=== PATIENT | female | born 1950 | race American Indian/Alaskan Native ===

== ENCOUNTER 2017-09-16 10:23 | Emergency (ER) | payer MEDICARE ==
[2017-09-16] MEDS ORDERED: SUBLIMAZE IV ONE (11:32)
[2017-09-16] MEDS ORDERED: BENADRYL IV ONE ×2 (11:32→13:15)
--- NOTE | 2017-09-16 11:39 | Emergency Department Report ---
HPI - General Chief Complaint: Pain General Time Seen by Provider: 09/16/17 11:24 - HPI HPI: The patient is a 66-year-old female with a history of fibromyalgia, chronic pain , who presents for evaluation of headache. The patient reports a constant headache since awakening this morning, approximately 2-3 hours prior to arrival , 5/10 in severity, throbbing in quality. She states that her headache is consistent with previous headaches. She also complains of generalized myalgias yesterday and this morning, although currently resolved. The patient denies fever, head injury, neck pain, neck stiffness, vision or hearing changes, smell or taste changes, paresthesias, facial drooping, slurred speech, seizure-like activity, urine or bowel incontinence or retention, or other focal neurological deficit. ED Past Medical Hx - Past Medical History Hx Hypertension: Yes Hx Heart Attack/AMI: No Hx Congestive Heart Failure: No Hx Diabetes: No Hx Seizures: No Hx Psychiatric Treatment: Yes (DEPRESSION) Hx Asthma: No Hx COPD: No Hx Dementia: No Additional medical history: HEART PROBLEMS/ FIBROMYALAGIA/ CHOLELITHIASIS - Surgical History Additional Surgical History: FOOT SURGERY - Social History Smoking Status: Never Smoker Substance Use Type: None - Medications Home Medications: Home Medications Medication Instructions Recorded Confirmed Last Taken Type Dexlansoprazole [Dexilant] 60 mg PO DAILY 10/30/14 03/22/16 03/22/16 History Escitalopram [Lexapro] 10 mg PO DAILY 10/30/14 03/22/16 03/22/16 History amLODIPine [Norvasc] 10 mg PO DAILY 10/30/14 03/22/16 03/22/16 History Meloxicam 7.5 mg PO DAILY 03/22/16 03/22/16 03/22/16 History Aspirin EC [Aspirin Enteric Coated 81 mg PO QDAY #30 tablet. 03/26/16 Unknown Rx TAB] HYDROcodone/APAP 5-325 [[place] 1 each PO Q6H PRN #30 tablet 03/26/16 Unknown Rx 5-325 mg TAB] Simvastatin [Zocor TAB] 20 mg PO QHS #30 tablet 03/26/16 Unknown Rx traMADol [Ultram 50 MG tab] 50 mg PO Q6HR PRN #10 tablet 09/16/17 Unknown Rx ED Review of Systems ROS: Stated complaint: PAIN ALL OVER Other details as noted in HPI Constitutional: denies: fever ENT: denies: throat or neck pain Respiratory: denies: cough, shortness of breath Cardiovascular: denies: chest pain Endocrine: denies unexplained weight loss or gain Gastrointestinal: denies: abdominal pain, nausea Genitourinary: denies: dysuria Musculoskeletal: denies: leg swelling Skin: denies: rash Neurological: reports: headache Hematological/Lymphatic: denies: easy bleeding or easy bruising Psych: denies sadness or hopelessness Physical Exam - Physical Exam Vital Signs: Vital Signs 09/16/17 10:32 Temperature 98.7 F Pulse Rate 104 H Respiratory 20 Rate Blood Pressure 206/132 O2 Sat by Pulse 96 Oximetry Physical Exam: General: well-nourished, well-developed, no acute distress Head: Normocephalic, atraumatic Eyes: normal sclera ENT: Mucous membranes are pale and dry Neck: No neck stiffness, no cervical adenopathy Respiratory: Breath sounds equal bilaterally, no wheezing, rales, or rhonchi Cardio: S1 and S2 present, no murmurs, rubs, gallops, capillary refill is delayed Abdomen: Normoactive bowel sounds, soft abdomen, no rigidity, no guarding or rebound tenderness Chest WALL/Back: No tenderness to palpation of the chest wall, no CVA tenderness with percussion Musc: No pitting edema Skin: No rash Neuro: alert oriented x4, normal cognition, speech normal, PERRL, EOM intact, no facial drooping, no uvula or tongue deviation on protrusion, no deficit with rotation of neck or shoulder shrug, no obvious gross motor deficit in the upper or lower extremities with flexion or extension at the shoulder, elbow, wrist, hip, knee, or ankle bilaterally, no obvious gross sensation deficit to crude touch or 2 pt discrimination, 2+ symmetric reflexes on DTR testing, no coordination deficit with [id number] or [id number] testing, Babinski downgoing Psych: Normal affect ED Course Vital Signs 09/16/17 10:32 Temperature 98.7 F Pulse Rate 104 H Respiratory 20 Rate Blood Pressure 206/132 O2 Sat by Pulse 96 Oximetry ED Medical Decision Making - Lab Data Result diagrams: 09/16/17 11:32 09/16/17 11:32 - Medical Decision Making The patient was seen and examined by myself. The patient is placed on a cafeteria monitor and continuous pulse ox. On initial evaluation, the patient was found to be in no distress. The patient is given pain medicine. Lab results are unremarkable. CT scan the head is negative for acute intracranial disease process. The patient was reevaluated and reported that their symptoms were markedly improved. The patient is stable for discharge with outpatient follow-up. The patient is given follow-up and return instructions. The patient expressed understanding and agreed with the plan. The patient is discharged in stable condition. Critical care attestation.: If time is entered above; I have spent that time in minutes in the direct care of this critically ill patient, excluding procedure time. ED Disposition Clinical Impression: Dehydration, mild, Acute non intractable tension-type headache, Hypertensive urgency Disposition: DC-01 TO HOME OR SELFCARE Is pt being admited?: No Does the pt Need Aspirin: No Condition: Stable Instructions: Chronic Hypertension (ED), Acute Headache (ED), Migraine Headache (ED), Musculoskeletal Pain (ED) Referrals: PRIMARY CARE, [Primary Care Provider] - 3-5 Days Time of Disposition: 11:38
[2017-09-16 11:49] LABS: Basophils % (Auto) 0.4 % (0.0-1.8); Eosinophils # (Auto) 0.1 K/mm3 (0.0-0.4); Eosinophils % (Auto) 3.9 % (0.0-4.3); Hemoglobin 12.9 gm/dl (10.1-14.3); Mean Corpuscular HGB Conc 33 % (30-34); Mean Corpuscular Hemoglobin 30 pg (28-32); Mean Corpuscular Volume 90 fl (79-97); Monocytes # (Auto) 0.4 K/mm3 (0.0-0.8); Monocytes % (Auto) 9.9 % (0.0-7.3); Platelet Count 215 K/mm3 (140-440); Red Blood Count 4.32 M/mm3 (3.65-5.03)
--- NOTE | 2017-09-16 11:56 | Cat Scan Report ---
CT HEAD WITHOUT CONTRAST: HISTORY: Headache. TECHNIQUE: Sequential 2.5mm CT images. COMPARISON: 03/23/16. FINDINGS: Cerebral Parenchyma: There are mild chronic periventricular white matter changes which are stable since 03/23/16. The remaining brain parenchyma demonstrates normal attenuation. Cerebellum: Within normal limits. Brainstem: Within normal limits. Ventricles: Normal. Sella: Normal. Extra-axial spaces: Normal. Basal Cisterns: Normal. Intracranial Hemorrhage: None. Midline Shift: None. Calvarium: Normal. Sinuses: Normal. Mastoid Air Cells: Normal. Visualized Orbits: Normal. IMPRESSION: Mild nonspecific chronic white matter changes. No acute process. No significant change since 03/23/16.
[2017-09-16 12:05] LABS: Alanine Aminotransferase 9 units/L (7-56); Albumin 3.6 g/dL (3.9-5); BUN/Creatinine Ratio 13; Blood Urea Nitrogen 14 mg/dL (7-17); Calcium 9.3 mg/dL (8.4-10.2); Hemolysis Index 5
[2017-09-16] MEDS ORDERED: APRESOLINE IV ONE ×2 (12:58→13:57)
[2017-09-16] MEDS ORDERED: TORADOL IV ONE (13:17)
[2017-09-16 22:09] VITALS: BP 125/85
== END 2017-09-16 20:40 | disposition home or self-care (01) ==
LOC: ED 10:23
DX: E86.0 Dehydration (principal); G44.209 Tension-type headache, unspecified, not intractable; I10 Essential (primary) hypertension; F32.9 Major depressive disorder, single episode, unspecified
CPT/HCPCS: 36415; 70450; 80053; 82550; 83880; 85025; 93005; 93010; 96374; 96375; 99284; J0360; J1200; J1885; J3010

== ENCOUNTER 2017-12-05 00:23 | Emergency (ER) | payer MEDICARE ==
[2017-12-05 00:30] VITALS: BP 150/79
--- NOTE | 2017-12-05 04:59 | Emergency Department Report ---
ED General Adult HPI - General Chief complaint: Pain General Stated complaint: BODYACHES/PAIN Time Seen by Provider: 12/05/17 04:55 Source: patient Mode of arrival: Ambulatory Limitations: No Limitations - History of Present Illness Initial comments: Patient is a 66-year-old -[place] female who presents with generalized body aches for the past 10 years and percussion refill of medications oxycodone 01/11/[address] sheehan patient hasn't seen for 1 year patient endorses no active prescriptions pain is not forward to and generalized exacerbated by movement prolonged sitting standing pain is relieved by rest. -: Gradual Location: chest, back, abdomen, upper extremity, lower extremity Radiation: non-radiation Severity scale (0 -10): 3 Consistency: now resolved Improves with: none Worsens with: none Associated Symptoms: denies other symptoms. denies: cough, diaphoresis, fever/ chills, headaches, nausea/vomiting, shortness of breath, syncope, weakness Treatments Prior to Arrival: none - Related Data Home Medications Medication Instructions Recorded Confirmed Last Taken Dexlansoprazole [Dexilant] 60 mg PO DAILY 10/30/14 03/22/16 03/22/16 Escitalopram [Lexapro] 10 mg PO DAILY 10/30/14 03/22/16 03/22/16 amLODIPine [Norvasc] 10 mg PO DAILY 10/30/14 03/22/16 03/22/16 Meloxicam 7.5 mg PO DAILY 03/22/16 03/22/16 03/22/16 Previous Rx's Medication Instructions Recorded Last Taken Type Aspirin EC [Aspirin Enteric Coated 81 mg PO QDAY #30 tablet. 03/26/16 Unknown Rx TAB] HYDROcodone/APAP 5-325 [[place] 1 each PO Q6H PRN #30 tablet 03/26/16 Unknown Rx 5-325 mg TAB] Simvastatin [Zocor TAB] 20 mg PO QHS #30 tablet 03/26/16 Unknown Rx traMADol [Ultram 50 MG tab] 50 mg PO Q6HR PRN #10 tablet 09/16/17 Unknown Rx Acetaminophen [Tylenol Extra 500 mg PO QID PRN #30 tablet 12/05/17 Unknown Rx Strength] Menthol/Camphor [[place] 18 gm TP TID PRN #1 tube 12/05/17 Unknown Rx Ointment] Allergies Allergy/AdvReac Type Severity Reaction Status Date / Time No Known Allergies Allergy Verified 03/22/16 21:36 ED Review of Systems ROS: Stated complaint: BODYACHES/PAIN Other details as noted in HPI Constitutional: denies: chills, fever Eyes: denies: eye pain, eye discharge, vision change ENT: denies: ear pain, throat pain Respiratory: denies: cough, shortness of breath, wheezing Cardiovascular: denies: chest pain, palpitations Endocrine: no symptoms reported Gastrointestinal: denies: abdominal pain, nausea, diarrhea Genitourinary: denies: urgency, dysuria, discharge Musculoskeletal: denies: back pain, joint swelling, arthralgia Skin: denies: rash, lesions Neurological: as per HPI Psychiatric: denies: anxiety, depression ED Past Medical Hx - Past Medical History Hx Hypertension: Yes Hx Heart Attack/AMI: No Hx Congestive Heart Failure: No Hx Diabetes: No Hx Seizures: No Hx Psychiatric Treatment: Yes (DEPRESSION) Hx Asthma: No Hx COPD: No Hx Dementia: No Additional medical history: HEART PROBLEMS/ FIBROMYALAGIA/ CHOLELITHIASIS/ CHRONIC PAIN - Surgical History Additional Surgical History: FOOT SURGERY, Tubal Ligation - Social History Smoking Status: Never Smoker Substance Use Type: None - Medications Home Medications: Home Medications Medication Instructions Recorded Confirmed Last Taken Type Dexlansoprazole [Dexilant] 60 mg PO DAILY 10/30/14 03/22/16 03/22/16 History Escitalopram [Lexapro] 10 mg PO DAILY 10/30/14 03/22/16 03/22/16 History amLODIPine [Norvasc] 10 mg PO DAILY 10/30/14 03/22/16 03/22/16 History Meloxicam 7.5 mg PO DAILY 03/22/16 03/22/16 03/22/16 History Aspirin EC [Aspirin Enteric Coated 81 mg PO QDAY #30 tablet.dr 03/26/16 Unknown Rx TAB] HYDROcodone/APAP 5-325 [[place] 1 each PO Q6H PRN #30 tablet 03/26/16 Unknown Rx 5-325 mg TAB] Simvastatin [Zocor TAB] 20 mg PO QHS #30 tablet 03/26/16 Unknown Rx traMADol [Ultram 50 MG tab] 50 mg PO Q6HR PRN #10 tablet 09/16/17 Unknown Rx Acetaminophen [Tylenol Extra 500 mg PO QID PRN #30 tablet 12/05/17 Unknown Rx Strength] Menthol/Camphor [[place] 18 gm TP TID PRN #1 tube 12/05/17 Unknown Rx Ointment] ED Physical Exam - General Limitations: No Limitations General appearance: alert, in no apparent distress - Head Head exam: Present: atraumatic, normocephalic - Eye Eye exam: Present: normal appearance - ENT ENT exam: Present: normal exam - Neck Neck exam: Present: normal inspection - Respiratory Respiratory exam: Present: normal lung sounds bilaterally. Absent: respiratory distress - Cardiovascular Cardiovascular Exam: Present: regular rate, normal rhythm. Absent: systolic murmur, diastolic murmur, rubs, gallop - GI/Abdominal GI/Abdominal exam: Present: soft, normal bowel sounds. Absent: tenderness, guarding, rigid, mass, bruit - Rectal Rectal exam: Present: deferred - External exam: Present: other (exam deferred per patiettn ) - Extremities Exam Extremities exam: Present: normal inspection - Expanded Upper Extremity Exam Left General: Present: other - Back Exam Back exam: Present: normal inspection - Neurological Exam Neurological exam: Present: alert, oriented X3 - Psychiatric Psychiatric exam: Present: normal affect, normal mood - Skin Skin exam: Present: warm, dry, intact, normal color. Absent: rash ED Course Vital Signs 12/05/17 00:29 Temperature 98.5 F Pulse Rate 102 H Respiratory 18 Rate Blood Pressure 150/79 O2 Sat by Pulse 98 Oximetry ED Medical Decision Making - EKG Data -: EKG Interpreted by Me EKG shows normal: axis Rate: normal - EKG Data When compared to previous EKG there are: changes noted Interpretation: no acute changes - Medical Decision Making Patient presented for generalized body aches for over 6 years question refill of oxycodone denies no fall injury or trauma physical exam patient appears well well-nourished well-hydrated well developed no symptoms of sickness online there has been no acute injury patient has PCP although she hadn't seen in 1 year recommendation follow up with primary care for pain control were prescribed Tylenol elixir for persistent low back pain patient denies dysuria no fever no nausea vomiting as well as will follow PCP in 2-3 days patient DC'd home in stable condition at this time Critical care attestation.: If time is entered above; I have spent that time in minutes in the direct care of this critically ill patient, excluding procedure time. ED Disposition Clinical Impression: Chronic pain Qualifiers: Chronic pain type: other chronic pain Qualified Code(s): G89.29 - Other chronic pain Disposition: TO HOME OR SELFCARE Is pt being admited?: No Does the pt Need Aspirin: No Condition: Good Instructions: Chronic Pain (ED) Prescriptions: Acetaminophen [Tylenol Extra Strength] 500 mg PO QID PRN #30 tablet PRN Reason: pain Menthol/Camphor [[place] Ointment] 18 gm TP TID PRN #1 tube PRN Reason: pain Referrals: PRIMARY CARE,MD [Primary Care Provider] - 3-5 Days Forms: Work/School Release Form(ED) Time of Disposition: 05:19
[2017-12-05] MEDS ORDERED: ULTRAM PO ONE (05:12)
== END 2017-12-05 05:40 | disposition home or self-care (01) ==
LOC: ED 00:23
DX: G89.29 Other chronic pain (principal); I10 Essential (primary) hypertension; F32.9 Major depressive disorder, single episode, unspecified; Z98.51 Tubal ligation status
CPT/HCPCS: 99282

== ENCOUNTER 2018-07-05 22:55 | Emergency (ER) | payer MEDICARE ==
[2018-07-05 23:17] VITALS: BP 119/92
== END 2018-07-05 23:15 | disposition left against medical advice (07) ==
LOC: ED 22:55
DX: R50.9 Fever, unspecified (principal); Z53.21 Procedure and treatment not carried out due to patient leaving prior to being seen by health care provider